=== PATIENT | male | born 1995 | race Caucasian/White ===

== ENCOUNTER 2018-03-22 20:25 | Emergency (ER) | payer OTHER ==
[~2018-03-22] VITALS: Ht 165.1 cm; Wt 51.7 kg
== END 2018-03-22 21:39 | disposition home or self-care (01) ==
LOC: ED 20:25
DX: S70.12XA Contusion of left thigh, initial encounter (principal); W55.19XA Other contact with horse, initial encounter; Y93.89 Activity, other specified; Y92.89 Other specified places as the place of occurrence of the external cause; Y99.8 Other external cause status

== ENCOUNTER 2019-01-05 12:27 | Emergency (ER) | payer OTHER ==
[~2019-01-05] VITALS: Ht 165.1 cm; Wt 51.7 kg
== END 2019-01-05 14:56 | disposition home or self-care (01) ==
LOC: ED 12:27
DX: S80.01XA Contusion of right knee, initial encounter (principal); S80.02XA Contusion of left knee, initial encounter; V80.010A Animal-rider injured by fall from or being thrown from horse in noncollision accident, initial encounter; Y93.52 Activity, horseback riding; Y92.89 Other specified places as the place of occurrence of the external cause; Y99.8 Other external cause status

== ENCOUNTER 2021-01-12 04:03 | Emergency (ER) | payer OTHER ==
[~2021-01-12] VITALS: Ht 162.5 cm; Wt 54.4 kg
[2021-01-12 05:48] LABS: ALBUMIN 4.2 gm/dl (3.1-4.5); ALKALINE PHOSPHATASE 107 U/L (45-117); BUN 11 mg/dl (7-24); CHLORIDE 109 mmol/L (98-107); LIPASE 57 U/L (73-393); POTASSIUM 3.9 mmol/L (3.5-5.1); SGOT/AST 35 IU/L (3-35); SGPT/ALT 37 U/L (12-78); SODIUM 141 mmol/L (136-145); TOTAL PROTEIN 7.8 gm/dL (6.4-8.2)
[2021-01-12 06:03] LABS: BASO # 0.1 10*3/uL (0.0-0.1); BASO % 0.6 % (0.0-1.0); EOS # 0.2 10*3/uL (0.0-0.4); EOS % 1.5 % (1.0-4.0); LYMPH # 1.3 10*3/uL (1.3-4.4); LYMPH % 12.4 % (27.0-41.0); MEAN CELL VOLUME 88.6 fl (80.0-94.0); MEAN CORPUSCULAR HGB 30.9 pg (27.0-31.0); MEAN CORPUSCULAR HGB CONC 34.9 g/dl (33.0-37.0); MEAN PLATELET VOLUME 10.6 fl (9.6-12.3); MONO # 0.5 10*3/uL (0.1-1.0); MONO % 4.7 % (3.0-9.0); NEUT # 8.7 10*3/uL (2.3-7.9); NEUT % 80.5 % (47.0-73.0); PLATELET COUNT AUTOMATED 298 10*3/uL (130-400); RED BLOOD COUNT 4.63 10*6/uL (4.50-5.90); WHITE BLOOD COUNT 10.7 10*3/uL (4.8-10.8)
== END 2021-01-12 07:56 | disposition short-term general hospital (02) ==
LOC: ED 04:03
PROVIDERS: Emergency Medicine
DX: S12.100A Unspecified displaced fracture of second cervical vertebra, initial encounter for closed fracture (principal); V49.9XXA Car occupant (driver) (passenger) injured in unspecified traffic accident, initial encounter; Y93.89 Activity, other specified; Y92.89 Other specified places as the place of occurrence of the external cause; Y99.8 Other external cause status

== ENCOUNTER → 2024-08-29 | Outpatient (CLI) | payer BC | END | disposition home or self-care (01) | LOC: RAD 12:17 | PROVIDERS: ATTEND Orthopaedic Surgery | DX: M25.561 Pain in right knee (principal) ==

== ENCOUNTER → 2024-09-06 | Outpatient (CLI) | payer BC | END | disposition home or self-care (01) | LOC: MRI 15:00 | PROVIDERS: ATTEND Orthopaedic Surgery | DX: S83.511A Sprain of anterior cruciate ligament of right knee, initial encounter (principal); S83.411A Sprain of medial collateral ligament of right knee, initial encounter; M25.461 Effusion, right knee; X58.XXXA Exposure to other specified factors, initial encounter; Y93.89 Activity, other specified; Y92.89 Other specified places as the place of occurrence of the external cause; Y99.8 Other external cause status ==